=== PATIENT | male | born 1965 | race African-American/Black ===

== ENCOUNTER 2016-10-15 10:21 | Emergency (ER) | payer OTHER, MEDICAID ==
[~2016-10-15] VITALS: Ht 172.7 cm; Wt 80.0 kg
[2016-10-15] MEDS ORDERED: LEVOFLOXACIN 750MG PREMIX 150 ML IV ONE (15:00)
[2016-10-15] MEDS ORDERED: KETOROLAC 60MG/2ML VIAL IM ONE (15:00)
[2016-10-15] MEDS ORDERED: VANCOMYCIN 1 G PREMIX 200 ML IV SCH (15:00)
[2016-10-15] MEDS ORDERED: HYDROCODONE/ACETAMINOPHEN 5/325MG TABLET PO ONE ×2 (15:15→17:30)
[2016-10-15] MEDS ORDERED: LIDOCAINE HCL 1% 20ML VIAL (Pyxis) INJ INFIL ONE (15:15)
[2016-10-15 15:25] LABS: BASOPHILS % 0.8 % (0.0-2.0); EOSINOPHILS % 1.7 % (0.0-5.0); HEMOGLOBIN. 12.7 g/dL (14.0-18.0); MEAN CORPUSCULAR HEMOGLOBIN 30.5 pg (28.0-32.0); MEAN CORPUSCULAR VOLUME 88.7 fL (80.0-94.0); MEAN PLATELET VOLUME 9.1 fl (7.4-10.4); MONOCYTES % 5.4 % (2.0-8.0); NEUTROPHILS % 80.1 % (40.0-76.0); PLATELET 232 x1000/uL (130-400); RED BLOOD CELL COUNT 4.17 mill/uL (4.7-6.1); RED CELL DISTRIBUTION WIDTH 12.9 % (11.6-14.6)
[2016-10-15] MEDS ORDERED: SODIUM CHLORIDE 0.9% 500 ML IV ONE (15:30)
[2016-10-15] MEDS ORDERED: LISINOPRIL 20MG TABLET PO ONE (15:30)
[2016-10-15] MEDS ORDERED: INSULIN REGULAR (HUMULIN R) 300UNITS/3ML SUBCUT ONE (15:30)
[2016-10-15 17:45] VITALS: BP 140/87
== END 2016-10-15 17:49 | disposition home or self-care (01) ==
LOC: ER 11:03
DX: L03.012 Cellulitis of left finger (principal); E11.9 Type 2 diabetes mellitus without complications; I10 Essential (primary) hypertension; Z88.0 Allergy status to penicillin
CPT/HCPCS: 10060; 36415; 73140; 82962; 85025; 96360; 96361; 96372; 99285; J1815; J3490; J7040; Z7610